=== PATIENT | female | born 1995 ===

== ENCOUNTER 2021-06-14 18:46 | Inpatient (IN) ==
[2021-06-14 17:17] LABS: Basophils % 0.3 %; Eosinophils # 0.1 K/mcL (0.0-0.6); Eosinophils % 0.4 %; Hematocrit 38.7 % (35.3-44.9); Hemoglobin 13.2 g/dL (11.5-15.4); Immature Granulocytes % 0.6 % (0-4); Lymphocytes # 1.5 K/mcL (0.6-4.6); Lymphocytes % 11.7 %; Mean Corpuscular HGB Conc 34.1 g/dL (31.6-35.5); Mean Corpuscular Hemoglobin 31.8 pg (28.0-33.3); Mean Corpuscular Volume 93.3 fL (83.0-100.0); Mean Platelet Volume 11.8 fL (9.4-12.4); Monocytes % 7.8 %; Neutrophils # 9.9 K/mcL (1.6-8.9); Platelet Count 201 K/mcL (140-400); Red Blood Count 4.15 M/mcL (3.82-4.97); Red Cell Distribution Width 12.5 % (11.5-14.5); Segmented Neutrophils % 79.2 %; White Blood Count 12.5 K/mcL (4.3-11.1)
[2021-06-14 17:54] LABS: Influenza A PCR Negative (Negative); Influenza B PCR Negative (Negative); Resp. Syncytial Virus PCR Negative (Negative)
[2021-06-14 18:02] LABS: SARS-CoV-2 by PCR (In House) Negative (Negative)
[2021-06-14 18:11] LABS: Amphetamine Screen,Urine Negative ng/mL (Cutoff=1000); Barbiturate Screen,Urine Negative ng/mL (Cutoff=200); Benzodiazepines Screen,Urine Negative ng/mL (Cutoff=200); Cannabinoid Screen,Urine Positive ng/mL (Cutoff = 50); Cocaine Screen,Urine Negative ng/mL (Cutoff= 300); Opiate Screen,Urine Negative ng/mL (Cutoff=300); Phencyclidine Screen,Urine Negative ng/mL (Cutoff=25)
[~2021-06-14 18:46] MED LIST: *HR* Nalbuphine 10 MG/ML AMPUL IV PRN; Famotidine 20 MG/2 ML VIAL IVP PRN; Methylergonovine 0.2 MG/ML AMPUL IM ONE; Metoclopramide 10 MG/2 ML VIAL IVP PRN; Naloxone 0.4 MG/ML INJ IVP PRN; Ringers Solution, Lactated 1,000 ML IVC SCH
[2021-06-14] MEDS ORDERED: EPHEDrine 50 MG/ML VIAL IVP PRN (20:36)
[2021-06-14] MEDS ORDERED: Oxytocin 20 units/ LR 1000 mL 20 UNIT/1,000 ML BAG IVC ONE (20:38)
[2021-06-14] MEDS ORDERED: Epidural Premix (fent/bupiv) 110 ML EP SCH (20:45)
[2021-06-15] MEDS ORDERED: Ondansetron ODT 4 MG TAB.RAPDIS SL PRN (01:03)
[2021-06-15] MEDS ORDERED: Oxytocin 20 units/ LR 1000 mL 20 UNIT/1,000 ML BAG IVC SCH (01:03)
[2021-06-15] MEDS ORDERED: Lanolin 7 G OINT...G. TP PRN (01:03)
[2021-06-15] MEDS ORDERED: Measles/Mumps/Rubella Vacc 0.5 ML VIAL SQ PRN (01:03)
[2021-06-15] MEDS ORDERED: Benzocaine/Menthol 56 GM AEROSOL SPRAY TP PRN (01:03)
[2021-06-15] MEDS ORDERED: Rho Immune Globulin 1,500 UNIT SYRINGE IM PRN (01:03)
[2021-06-15] MEDS: Acetaminophen 325 MG TABLET PO SCH ×4 (03:57→23:43)
[2021-06-15] MEDS: Ibuprofen 600 MG TABLET PO SCH ×4 (03:57→23:43)
[2021-06-15] MEDS: Prenatal Vit/FA 1 EACH TABLET PO SCH (10:34)
[2021-06-16 07:29] VITALS: BP 112/53; PULSE 56; TEMP 97.6; O2SAT 98
[2021-06-16] MEDS: Prenatal Vit/FA 1 EACH TABLET PO SCH (08:09)
[2021-06-16] MEDS: Ibuprofen 600 MG TABLET PO SCH (08:09)
[2021-06-16] MEDS: Acetaminophen 325 MG TABLET PO SCH (08:10)
[2021-06-16] MEDS ORDERED: FLU Vac QV 21-22 (6Month+)/PF 0.5 ML SYRINGE IM ONE (11:32)
== END 2021-06-16 15:35 | disposition home or self-care (01) | DRG 560 ==
LOC: 1NENULAB → 1NENUOBS 06-15 01:04
PROVIDERS: ADMIT Advanced Practice Midwife; ATTEND Advanced Practice Midwife